=== PATIENT | female | born 1990 | race Caucasian/White ===

== ENCOUNTER 2017-01-02 12:10 | Inpatient (IN) | payer MEDICAID ==
[2017-01-04] MEDS ORDERED: Lidocaine 1% 50 ML MDV INJECT ONE (12:34)
[2017-01-04] MEDS ORDERED: Sodium Chloride 0.9% 10 ML Syringe FLUSH PRN (12:34)
[2017-01-04] MEDS ORDERED: Ondansetron 4 MG/2 ML SDV IVPUSH PRN (12:34)
[2017-01-04] MEDS ORDERED: Nalbuphine 20 MG/1 ML Amp IVPUSH PRN (12:34)
[2017-01-04] MEDS ORDERED: Oxytocin/Lactated Ringers 10 UNIT/1,000 ML BAG IV SCH (12:45)
--- NOTE | 2017-01-04 12:55 | PCM.LDHP ---
L&D History of Present Illness - General Date of Service: 01/04/17 Admit Problem/Dx: Patient Status Order with Admit Dx/Problem 01/04/17 12:34 Patient Status [ADT] Routine Admission Diagnosis/Problem Admission Diagnosis/Problem Normal 01/04/17 12:44 40-2/7 week intrauterine Precis, induction of labor Source of Information: Patient History Limitations: Reports: No Limitations - History of Present Illness Introduction:: Gabriela is a 26-year-old 3 para 2000 white female who is presently at 40 -2/7 weeks gestational age with an JAZMYNE of 01/02/2017 admitted for elective induction of labor for, benefits, alternatives of care discussed neutral patient. She appears to understand and wishes to proceed. 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 Periods are very irregular every 20-35 days. Menarche age 16. Positive hCG on 05/15/2016. Her previous deliveries included the followin. Male born 07/20/2012 at 40 weeks gestational age of after 12 hours labor. 6 lbs. 12 oz. male born via vacuum extraction delivery in [place], [place]. Child's name is Tera. 2. Male infant born [birth year]2016 at 40 weeks gestational age after 6 hour labor- normal spontaneous vaginal delivery in [place]. course was relatively unremarkable. Her EPDS_on 08/13/2016 was 4 out of 30. risk factors for the include history of macrosomic baby-9 lbs. 2 oz., increased distance from the Hospital and history of thrombocytopenia. T Dap vaccination was given on 10/22/2016. Her first visit occurred on 07/13 at 15-2/7 weeks. Weight gain was from 186.6 pounds up to 206 pounds for approximately 20 pound weight gain. Fundal height growth was appropriate and vital signs remained stable throughout the course. Laboratory testing and shows blood to be B+. Negative antibody screen. Her first hemoglobin was 13.6 g her deciliter. Platelets are 150,000. Pap smear was negative. Rubella titer showed immunity. RPR is nonreactive. She did have Escherichia coli urinary early on and was treated. Hepatitis B surface antigen and HIV assays were negative as were the Chlamydia and gonorrhea assays. Second trimester testing showed a hemoglobin 12.4 g/dL, a platelet count of 155,000 and a diabetic screen of 96 which was normal. Patient had a urine culture 2016 which showed Gardnerella vaginalis. This was treated with metronidazole. Her group B strep screen was negative. Allergies: Strawberries, seasonal allergies, tree nuts which cause hives and dust. Medications: vitamins 1 daily. Past medical history: 1. Normal spontaneous vaginal delivery 2 2. History of heart murmur Past surgical history: 1. Tonsillectomy 2011 Family history: Mother and father are alive and well. Mother has a seizure disorder for which she is on meds. One brother is alive and well. Maternal grandmother is secondary to unknown causes. Maternal grandfather is in a CO usp/snf in [place] with dementia. Paternal grandmother is alive and well. Paternal grandfather secondary to COPD and heart disease. No , anesthesia, bleeding or clotting problems noted in the family. Social history: Patient is single. Significant other is Willian Johnson. She does not use any significant muscle call call, drugs or tobacco. 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 She is a high school graduate. Review of systems: Skin: Negative Respiratory: No shortness of breath or infectious symptoms Cardiovascular: No chest pain or exercise tolerance Breasts: Changes associated with GI: Negative : Changes associated with with increased fundal height. Neurologic: Negative Musculoskeletal: Some edema in bilateral lower extremities on occasion. 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 LACTATION COUNSELOR History: Reports: Oncologic (Cancer) History: Reports: None - Infectious Disease History Infectious Disease History: Reports: Chicken Pox - Past Surgical History HEENT Surgical History: Reports: Tonsillectomy Social & Family History - Family History Family Medical History: Noncontributory - Tobacco Use Smoking Status *Q: Never Smoker Second Hand Smoke Exposure: No - Caffeine Use Caffeine Use: Reports: None - Alcohol Use Days Per Week of Alcohol Use: 0 Number of Drinks Per Day: 0 Total Drinks Per Week: 0 - Recreational Drug Use Recreational Drug Use: No Drug Use in Last 12 Months: No H&P Review of Systems - Review of Systems: Review Of Systems: See Below L&D Exam - Exam Exam: See Below - Vital Signs Weight: 80.739 kg Problem List Initiated/Reviewed/Updated: Yes Orders Last 24hrs: Active Orders 24 hr Category Date Time Status Patient Status [ADT] Routine ADT 01/04/17 12:34 Ordered Activity as Tolerated [RC] PFP Care 01/04/17 12:34 Ordered Communication Order [RC] ASDIRECTED Care 01/04/17 12:34 Ordered Heart Tones [RC] ASDIRECTED Care 01/04/17 12:35 Ordered Notify Provider [RC] PFP Care 01/04/17 12:34 Ordered Notify Provider [RC] PRN Care 01/04/17 12:34 Ordered Peripheral IV Care [RC] . DIRECTED Care 01/04/17 12:35 Ordered Pump Management, Intrathecal [RC] ASDIRECTED Care 01/04/17 12:37 Ordered Vital Signs [RC] PER UNIT ROUTINE Care 01/04/17 12:34 Ordered Regular Diet [DIET] Diet 01/04/17 Lunch Ordered CBC WITH AUTO DIFF [HEME] Stat Lab 01/04/17 12:34 Ordered Lactated Ringers [Ringers, Lactated] 1,000 ml Med 01/04/17 12:45 Ordered IV ASDIRECTED Lidocaine 1% [Xylocaine 1%] Med 01/04/17 12:34 Once 10 ml INJECT ONETIME ONE Nalbuphine [Nubain] Med 01/04/17 12:34 Ordered 10 mg IVPUSH Q2H PRN Ondansetron [Zofran] Med 01/04/17 12:34 Ordered 4 mg IVPUSH Q4H PRN Oxytocin/Lactated Ringers [Pitocin in LR 10 Units/1,000 Med 01/04/17 12:45 Ordered ML] 10 unit in 1,000 ml IV TITRATE Sodium Chloride 0.9% [Saline Flush] Med 01/04/17 12:34 Ordered 10 ml FLUSH ASDIRECTED PRN Electronic Heart Tones Ext w TOCO [WOMSER] Oth 01/04/17 12:34 Ordered Routine Electronic Heart Tones Internal [WOMSER] Per Unit Oth 01/04/17 12:34 Ordered Routine Peripheral IV Insertion Adult [OM.PC] Routine Oth 01/04/17 12:34 Ordered Resuscitation Status Routine Resus Stat 01/04/17 12:34 Ordered Medication Orders Lactated Ringer's (Ringers, Lactated) 1,000 mls @ 100 mls/hr IV ASDIRECTED NEAL Oxytocin/Lactated Ringer's (Pitocin In Lr 10 Units/1,000 Ml) 10 unit in 1,000 mls @ 12 mls/hr IV TITRATE NEAL; 2 MUNITS/MIN PRN Reason: Protocol Lidocaine HCl (Xylocaine 1%) 10 ml INJECT ONETIME ONE Stop: 01/04/17 12:35 Nalbuphine HCl (Nubain) 10 mg IVPUSH Q2H PRN PRN Reason: Pain (moderate 4-6) Ondansetron HCl (Zofran) 4 mg IVPUSH Q4H PRN PRN Reason: Nausea/Vomiting Sodium Chloride (Saline Flush) 10 ml FLUSH ASDIRECTED PRN PRN Reason: Keep Vein Open Assessment/Plan Comment:: Assessment: 1. 40-2/7 week intrauterine , admitted for induction of labor. 2. Risk factors for the Siddhartha include distance from the hospital 3. Group B strep negative. 4. Okay with epidural analgesia Plan: 1. Pitocin induction of labor with artificial rupture membranes augmentation at the appropriate time. 2. Electronic monitoring intermittently 3. When necessary for pain 4. Routine labs and labor and delivery care.
[2017-01-04] MEDS: Lactated Ringers 1,000 ML IV SCH ×5 (12:58→18:26)
[2017-01-04] MEDS ORDERED: fentaNYL 100 MCG/2 ML SDV EPIDUR PRN (13:08)
[2017-01-04] MEDS ORDERED: ePHEDrine 50 MG/ML SDV IVPUSH PRN (13:08)
[2017-01-04] MEDS ORDERED: diphenhydrAMINE 50 MG/ML SDV IVPUSH PRN (13:08)
[2017-01-04] MEDS ORDERED: Bupivacaine/fentaNYL/NS 100 ML Bag EPIDUR SCH (13:15)
--- NOTE | 2017-01-04 13:30 | PCM.PREANE ---
Preanesthetic Assessment - Anesthesia/Transfusion/Family Hx Anesthesia History: Prior Anesthesia Without Reaction Family History of Anesthesia Reaction: No Transfusion History: No Prior Transfusion(s) - Review of Systems General: No Symptoms Pulmonary: No Symptoms Cardiovascular: No Symptoms Gastrointestinal: No Symptoms Neurological: No Symptoms Other: Reports: Easy Bruising - Physical Assessment Pulse: 89 O2 Sat by Pulse Oximetry: 98 Respiratory Rate: 18 Vital Signs: Last Vital Signs Temp 99.2 F 01/04/17 13:05 Pulse 89 01/04/17 13:05 Resp 18 01/04/17 13:05 BP 141/65 H 01/04/17 13:05 Pulse Ox 98 01/04/17 13:05 Height: 5 ft 7 in Weight: 80.739 kg ASA Class: 2 Mental Status: Alert & Oriented x3 Airway Class: Mallampati = 1 Dentition: Reports: Normal Dentition Thyro-Mental Finger Breadths: 3 Mouth Opening Finger Breadths: 3 ROM/Head Extension: Full Lungs: Clear to Auscultation, Normal Respiratory Effort Cardiovascular: Regular Rate, Regular Rhythm - Lab Values: Laboratory Last Values WBC 13.65 K/mm3 (3.98-10.04) H 01/04/17 13:14 RBC 4.20 M/mm3 (3.98-5.22) 01/04/17 13:14 Hgb 12.1 gm/L (11.2-15.7) 01/04/17 13:14 Hct 36.7 % (34.1-44.9) 01/04/17 13:14 MCV 87.4 fl (79.4-94.8) 01/04/17 13:14 MCH 28.8 pg (25.6-32.2) 01/04/17 13:14 MCHC 33.0 g/dl (32.2-35.5) 01/04/17 13:14 RDW Std Deviation 44.0 fL (36.4-46.3) 01/04/17 13:14 Plt Count 137 K/mm3 (182-369) L 01/04/17 13:14 MPV 11.4 fl (9.4-12.3) 01/04/17 13:14 Neut % (Auto) 80.9 % (34.0-71.1) H 01/04/17 13:14 Lymph % (Auto) 12.2 % (19.3-51.7) L 01/04/17 13:14 [place] % (Auto) 6.2 % (4.7-12.5) 01/04/17 13:14 Eos % (Auto) 0.3 (0.7-5.8) L 01/04/17 13:14 Baso % (Auto) 0.1 % (0.1-1.2) 01/04/17 13:14 Neut # (Auto) 11.06 K/mm3 (1.56-6.13) H 01/04/17 13:14 Lymph # (Auto) 1.66 K/mm3 (1.18-3.74) 01/04/17 13:14 [place] # (Auto) 0.84 K/mm3 (0.24-0.36) H 01/04/17 13:14 Eos # (Auto) 0.04 K/mm3 (0.04-0.36) 01/04/17 13:14 Baso # (Auto) 0.01 K/mm3 (0.01-0.08) 01/04/17 13:14 - Allergies Allergies/Adverse Reactions: Allergies Allergy/AdvReac Type Severity Reaction Status Date / Time No Known Allergies Allergy Verified 08/20/15 19:39 - Blood Blood Available: No - Acknowledgements Anesthesia Type Planned: Epidural Pt an Appropriate Candidate for the Planned Anesthesia: Yes Alternatives and Risks of Anesthesia Discussed w Pt/Guardian: Yes Pt/Guardian Understands and Agrees with Anesthesia Plan: Yes PreAnesthesia Questionnaire - Past Health History Medical/Surgical History: Denies Medical/Surgical History Cardiovascular History: Reports: Heart Murmur Respiratory History: Reports: None 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) Para: 2 Oncologic (Cancer) History: Reports: None - Infectious Disease History Infectious Disease History: Reports: Chicken Pox - Past Surgical History HEENT Surgical History: Reports: Tonsillectomy - SUBSTANCE USE Smoking Status *Q: Never Smoker Tobacco Use Within Last Twelve Months: No Second Hand Smoke Exposure: No Days Per Week of Alcohol Use: 0 Number of Drinks Per Day: 0 Total Drinks Per Week: 0 Recreational Drug Use History: No - HOME MEDS Home Medications: Home Meds Vit 90/Iron Fum/Folic [ Formula] 1 tab PO DAILY 08/20/15 [ History] Docusate Sodium [Colace] 100 mg PO BID PRN #0 cap 01/31/16 [Rx] Ibuprofen [IJD: Ibuprofen] 600 mg PO Q4H PRN #0 tablet 01/31/16 [Rx] - CURRENT (IN HOUSE) MEDS Current Meds: Current Medications Diphenhydramine HCl (Benadryl) 25 mg IVPUSH Q6H PRN PRN Reason: pruritis Ephedrine Sulfate (Ephedrine Sulfate) 5 mg IVPUSH ASDIRECTED PRN PRN Reason: Hypotension Fentanyl (Sublimaze) 100 mcg EPIDUR Q3H PRN PRN Reason: Pain Fentanyl/Bupivacaine HCl (Fentanyl/Bupivacaine/Ns 2 Mcg-0.125% 100 Ml) 100 ml EPIDUR ASDIRECTED NEAL Lactated Ringer's (Ringers, Lactated) 1,000 mls @ 100 mls/hr IV ASDIRECTED NEAL Last Admin: 01/04/17 12:58 Dose: 100 mls/hr Oxytocin/Lactated Ringer's (Pitocin In Lr 10 Units/1,000 Ml) 10 unit in 1,000 mls @ 12 mls/hr IV TITRATE NEAL; 2 MUNITS/MIN PRN Reason: Protocol Last Admin: 01/04/17 12:58 Dose: 2 munits/min, 12 mls/hr Nalbuphine HCl (Nubain) 10 mg IVPUSH Q2H PRN PRN Reason: Pain (moderate 4-6) Ondansetron HCl (Zofran) 4 mg IVPUSH Q4H PRN PRN Reason: Nausea/Vomiting Sodium Chloride (Saline Flush) 10 ml FLUSH ASDIRECTED PRN PRN Reason: Keep Vein Open Discontinued Medications Lidocaine HCl (Xylocaine 1%) 10 ml INJECT ONETIME ONE Stop: 01/04/17 12:35
--- NOTE | 2017-01-04 21:18 | PCM.SN ---
- Free Text/Narrative Note: Gabriela is a 26-year-old 3 now para 3003 white female who is admitted for elective induction of labor at midday on 01/04/2017. Pitocin was started initially and then artificial rupture membranes was undertaken. She made steady progress to complete cervical dilation by approximately 2045 hrs. She then pushed 1 time and delivered a female infant, weighing 4050 g (8 pounds 14.9 ounces) having an of 7 and 9, length of 21 inches in being born in a left occiput anterior position over an intact perineum. Baby was placed on mom's abdomen and cord was clamped 2 and cut. The umbilical cord had 3 vessels. Pitocin was infused per IV after delivery of the baby to facilitate increase in uterine tone and decrease likelihood of bleeding. Cord blood was obtained. The placenta then delivered intact in a Courtney presentation. It was discarded per patient desire. It appeared complete. Perineum was noted to be intact and no suturing was necessary. Estimated blood loss was 100 mL. Should be noted patient had an epidural in labor which provided good analgesia until the time of delivery. She plans to nurse the baby. Condition: Good.
[2017-01-04] MEDS ORDERED: Witch Hazel Medicated Pads 100/Jar TOP PRN (21:42)
[2017-01-04] MEDS ORDERED: Acetaminophen 325 MG Tab PO PRN (21:42)
[2017-01-04] MEDS ORDERED: Lanolin 100% Cream 7 GM Tube TOP PRN (21:42)
[2017-01-04] MEDS ORDERED: Docusate Sodium 100 MG Cap PO PRN (21:42)
[2017-01-04] MEDS ORDERED: Benzocaine/Menthol 20%-0.5% Spray 56 GM Canister TOP PRN (21:42)
[2017-01-04] MEDS ORDERED: Ibuprofen 600 MG Tab PO PRN (21:42)
[2017-01-04] MEDS ORDERED: Bupivacaine 0.25% 10 ML SDV ONE (22:22)
[2017-01-05] MEDS: Prenatal Multivitamin with Calcium/Folic Acid/Iron Tab PO SCH (09:08)
--- NOTE | 2017-01-05 10:33 | PCM.SN ---
- Free Text/Narrative Note: Post Progress Note PPD # 1 Subjective: Doing well overall. Ambulating without difficulty. Lochia minimal. Voiding without difficulty. Tolerating regular diet. Pain has been minimal and she has used only oral medications last evening after delivery. Breast feeding with minimal difficulty. Objective: Vitals: Vital Signs - 8 hr 01/05/17 01/05/17 01/05/17 04:00 04:01 08:47 Temperature 36.7 C Temperature [ 36.8 C Temporal] Pulse, 93 81 Peripheral Respiratory 15 14 Rate Blood Pressure 124/73 128/82 O2 Sat by Pulse 97 100 Oximetry Physical Exam General: Alert and oriented, no acute distress Lungs: Clear to auscultation bilaterally Heart: Regular rate and rhythm Abdomen: Soft, minimal appropriate tenderness, non-distended, fundus midline, nontender, and below the umbilicus Extremities: Trace edema in bilateral lower extremities to mid shins ASSESSMENT: 26-year-old female G 3 P 3003 s/p normal vaginal delivery PPD #1 PLAN: Doing well Breast feeding with minimal difficulty. Assist as needed Lochia minimal. Continue to monitor for appropriate lochia. Continue routine care Anticipate discharge home tomorrow secondary to late evening time of delivery León Moon MD 10:32 AM 01/05/17
--- NOTE | 2017-01-05 11:57 | PCM48HPAN ---
Post Anesthesia Note - EVALUATION WITHIN 48HRS OF ANESTHETIC Vital Signs in Normal Range: Yes Patient Participated in Evaluation: Yes Respiratory Function Stable: Yes Airway Patent: Yes Cardiovascular Function Stable: Yes Hydration Status Stable: Yes Pain Control Satisfactory: Yes Nausea and Vomiting Control Satisfactory: Yes Mental Status Recovered: Yes - COMMENTS/OBSERVATIONS Free Text/Narrative:: Patient denied any headaches, residual numbness/ tingling to LE, or back pain.
[2017-01-05 21:52] VITALS: BP 128/74
--- NOTE | 2017-01-06 09:25 | PCM.SN ---
- Free Text/Narrative Note: Post Progress Note PPD # 2 Subjective: Doing well overall. Ambulating without difficulty. Lochia minimal. Voiding without difficulty. Tolerating regular diet. Pain controlled with oral medications. Reports some minimal tenderness in her back near her epidural site , but this has been improving. Breast feeding with minimal difficulty. Objective: Vitals: Last Vital Signs Temp 36.8 C 01/05/17 19:54 Pulse 71 01/05/17 19:54 Resp 16 01/05/17 19:54 BP 128/74 01/05/17 19:54 Pulse Ox 99 01/05/17 19:54 Physical Exam General: Alert and oriented, no acute distress Lungs: Clear to auscultation bilaterally Heart: Regular rate and rhythm Abdomen: Soft, minimal appropriate tenderness, non-distended, fundus midline, nontender, and below the umbilicus Extremities: No edema ASSESSMENT: 26-year-old female G 3 P 3003 s/p normal vaginal delivery PPD #2 PLAN: Doing well Breast feeding with minimal difficulty. Assist as needed Lochia minimal. Continue to monitor for appropriate lochia. Continue routine care Anticipate discharge home today León Moon MD 9:24 AM 01/06/17
--- NOTE | 2017-01-06 09:25 | PCM.DCSUM1 ---
Discharge Summary - Hospital Course Free Text/Narrative:: Gabriela is a 26-year-old 3 now para 3003 white female who is admitted for elective induction of labor at midday on 01/04/2017. Pitocin was started initially and then artificial rupture membranes was undertaken. She made steady progress to complete cervical dilation by approximately 2045 hrs. She then pushed 1 time and delivered a female , weighing 4050 g (8 pounds 14.9 ounces) having an of 7 and 9, length of 21 inches in being born in a left occiput anterior position over an intact perineum. Baby was placed on mom's abdomen and cord was clamped 2 and cut. The umbilical cord had 3 vessels. Pitocin was infused per IV after delivery of the baby to facilitate increase in uterine tone and decrease likelihood of bleeding. Cord blood was obtained. The placenta then delivered intact in a Courtney presentation. It was discarded per patient desire. It appeared complete. Perineum was noted to be intact and no suturing was necessary. Estimated blood loss was 100 mL. Should be noted patient had an epidural in labor which provided good analgesia until the time of delivery. She plans to nurse the baby. Condition: Good. HPI Initial Comments: Gabriela is a 26-year-old 3 now para 3003 white female who is admitted for elective induction of labor at midday on 01/04/2017. Pitocin was started initially and then artificial rupture membranes was undertaken. She made steady progress to complete cervical dilation by approximately 2045 hrs. She then pushed 1 time and delivered a female , weighing 4050 g (8 pounds 14.9 ounces) having an of 7 and 9, length of 21 inches in being born in a left occiput anterior position over an intact perineum. Baby was placed on mom's abdomen and cord was clamped 2 and cut. The umbilical cord had 3 vessels. Pitocin was infused per IV after delivery of the baby to facilitate increase in uterine tone and decrease likelihood of bleeding. Cord blood was obtained. The placenta then delivered intact in a Courtney presentation. It was discarded per patient desire. It appeared complete. Perineum was noted to be intact and no suturing was necessary. Estimated blood loss was 100 mL. Should be noted patient had an epidural in labor which provided good analgesia until the time of delivery. She plans to nurse the baby. Condition: Good. Brief History: Gabriela is a 26-year-old 3 now para 3003 white female who is admitted for elective induction of labor at midday on 01/04/2017. Pitocin was started initially and then artificial rupture membranes was undertaken. She made steady progress to complete cervical dilation by approximately 2045 hrs. She then pushed 1 time and delivered a female , weighing 4050 g (8 pounds 14.9 ounces) having an of 7 and 9, length of 21 inches in being born in a left occiput anterior position over an intact perineum. Baby was placed on mom's abdomen and cord was clamped 2 and cut. The umbilical cord had 3 vessels. Pitocin was infused per IV after delivery of the baby to facilitate increase in uterine tone and decrease likelihood of bleeding. Cord blood was obtained. The placenta then delivered intact in a Courtney presentation. It was discarded per patient desire. It appeared complete. Perineum was noted to be intact and no suturing was necessary. Estimated blood loss was 100 mL. Should be noted patient had an epidural in labor which provided good analgesia until the time of delivery. She plans to nurse the baby. Condition: Good. - Discharge Data Discharge Date: 01/06/17 Discharge Disposition: Home, Self-Care 01 Condition: Good - Discharge Diagnosis/Problem(s) (1) (normal spontaneous vaginal delivery) SNOMED Code(s): 77387777 ICD Code: O80 - ENCOUNTER FOR FULL-TERM UNCOMPLICATED DELIVERY Status: Acute Current Visit: Yes (2) 39 weeks gestation of SNOMED Code(s): 23724024 ICD Code: Z3A.39 - 39 WEEKS GESTATION OF Status: Acute Current Visit: No (3) Elective induction of labor planned SNOMED Code(s): 431674702 ICD Code: [id number] - Status: Acute Current Visit: No - Patient Summary/Data Complications: None Consults: None Hospital Course: Gabriela is a 26-year-old 3 now para 3003 white female who is admitted for elective induction of labor at midday on 01/04/2017. Pitocin was started initially and then artificial rupture membranes was undertaken. She made steady progress to complete cervical dilation by approximately 2045 hrs. She then pushed 1 time and delivered a female infant, weighing 4050 g (8 pounds 14.9 ounces) having an of 7 and 9, length of 21 inches in being born in a left occiput anterior position over an intact perineum. Baby was placed on mom's abdomen and cord was clamped 2 and cut. The umbilical cord had 3 vessels. Pitocin was infused per IV after delivery of the baby to facilitate increase in uterine tone and decrease likelihood of bleeding. Cord blood was obtained. The placenta then delivered intact in a Courtney presentation. It was discarded per patient desire. It appeared complete. Perineum was noted to be intact and no suturing was necessary. Estimated blood loss was 100 mL. Should be noted patient had an epidural in labor which provided good analgesia until the time of delivery. She plans to nurse the baby. Condition: Good. Patient was doing well after delivery and was meeting all milestones including ambulating, tolerating regular diet and voiding without difficulty. She is not discharged home in the evening of day #1 secondary to late time of delivery and distance from hospital. In the morning of day #2 she was meeting all milestones and desired to be discharged home. She'll follow up with Dr. Francisco in 2 weeks or earlier as needed. - Patient Instructions Diet: Regular Diet as Tolerated Activity: As Tolerated Driving: May Drive Today Showering/Bathing: May Shower, No Tub Bathing/Swimming (For 6 weeks) Notify Provider of: Fever, Increased Pain, Swelling and Redness, Drainage, Nausea and/or Vomiting - Discharge Plan Home Medications: Home Meds Sce194/FA/Omega3/Dha/Fish Oil [ Gummies] 1 each PO DAILY 01/05/17 [ History] Acetaminophen [Tylenol] 650 mg PO Q4H PRN tablet 01/06/17 [Rx] Benzocaine/Menthol [Dermoplast Pain Relief Wheat[place]] 1 spray TOP ASDIRECTED PRN canister 01/06/17 [Rx] Docusate Sodium [Colace] 100 mg PO BID PRN cap 01/06/17 [Rx] Ibuprofen [IJD: Ibuprofen] 600 mg PO Q6H PRN tablet 01/06/17 [Rx] Lanolin [Lansinoh HPA] 1 applic TOP ASDIRECTED PRN tube 01/06/17 [Rx] Witch Nory [Tucks] 1 pad TOP ASDIRECTED PRN pad 01/06/17 [Rx] Patient Handouts: Vaginal Delivery, Care After Vaginal Delivery Referrals: Sam Francisco MD [Primary Care Provider] - (Follow-up in 2 weeks for visit.) - Discharge Summary/Plan Comment DC Time >30 min.: No - Patient Data Vitals - Most Recent: Last Vital Signs Temp 36.8 C 01/05/17 19:54 Pulse 71 01/05/17 19:54 Resp 16 01/05/17 19:54 BP 128/74 01/05/17 19:54 Pulse Ox 99 01/05/17 19:54 Weight - Most Recent: 97.069 kg I&O - Last 24 hours: Intake & Output 01/05/17 01/06/17 01/06/17 22:59 06:59 14:59 Intake Total 0 Balance 0 Med Orders - Current: Current Medications Acetaminophen (Tylenol) 650 mg PO Q4H PRN PRN Reason: mild pain or fever Benzocaine/Menthol (Dermoplast Pain Relief Wheat[place]) 0 gm TOP ASDIRECTED PRN PRN Reason: Perineal Comfort Measure Last Admin: 01/04/17 22:46 Dose: 1 applic Docusate Sodium (Colace) 100 mg PO BID PRN PRN Reason: Constipation Emollient Ointment (Lansinoh Hpa) 0 gm TOP ASDIRECTED PRN PRN Reason: Sore Nipples Ibuprofen (Motrin) 600 mg PO Q4H PRN PRN Reason: Mild pain or fever Last Admin: 01/06/17 06:10 Dose: 600 mg Prenat Multivit/Randolph/Iron/Folic Ac ( Plus Iron) 1 each PO DAILY NEAL Last Admin: 01/05/17 09:08 Dose: Not Given Zack Canalesel (Tucks) 1 pad TOP ASDIRECTED PRN PRN Reason: Hemorrhoid pain Last Admin: 01/04/17 22:46 Dose: 1 applic Discontinued Medications Bupivacaine HCl (Sensorcaine-Mpf 0.25%) 10 ml .ROUTE .STK-MED ONE Stop: 01/04/17 22:23 Diphenhydramine HCl (Benadryl) 25 mg IVPUSH Q6H PRN PRN Reason: pruritis Ephedrine Sulfate (Ephedrine Sulfate) 5 mg IVPUSH ASDIRECTED PRN PRN Reason: Hypotension Last Admin: 01/04/17 16:34 Dose: 5 mg Fentanyl (Sublimaze) 100 mcg EPIDUR Q3H PRN PRN Reason: Pain Last Admin: 01/04/17 15:30 Dose: 100 mcg Fentanyl/Bupivacaine HCl (Fentanyl/Bupivacaine/Ns 2 Mcg-0.125% 100 Ml) 100 ml EPIDUR ASDIRECTED NEAL Last Admin: 01/04/17 15:29 Dose: 100 ml Lactated Ringer's (Ringers, Lactated) 1,000 mls @ 100 mls/hr IV ASDIRECTED NEAL Last Admin: 01/04/17 18:26 Dose: 999 mls/hr Oxytocin/Lactated Ringer's (Pitocin In Lr 10 Units/1,000 Ml) 10 unit in 1,000 mls @ 12 mls/hr IV TITRATE NEAL; 2 MUNITS/MIN PRN Reason: Protocol Last Titration: 01/04/17 20:48 Dose: 4 munits/min, 24 mls/hr Lidocaine HCl (Xylocaine 1%) 10 ml INJECT ONETIME ONE Stop: 01/04/17 12:35 Last Admin: 01/04/17 23:47 Dose: Not Given Nalbuphine HCl (Nubain) 10 mg IVPUSH Q2H PRN PRN Reason: Pain (moderate 4-6) Ondansetron HCl (Zofran) 4 mg IVPUSH Q4H PRN PRN Reason: Nausea/Vomiting Sodium Chloride (Saline Flush) 10 ml FLUSH ASDIRECTED PRN PRN Reason: Keep Vein Open *Q Meaningful Use (DIS) - VTE *Q VTE Criteria *Q: - Stroke *Q Stroke Criteria *Q: - AMI *Q AMI Criteria *Q:
[2017-01-06] MEDS: Prenatal Multivitamin with Calcium/Folic Acid/Iron Tab PO SCH (14:24)
== END 2017-01-06 13:07 | disposition home or self-care (01) | DRG 775 ==
LOC: EDSTATUS 12:10 → JD.OB 01-04 11:59 → OBSVTOIN 01-04 20:59 → JD.OB 01-04 20:59
PROVIDERS: ADMIT Obstetrics & Gynecology; ATTEND Obstetrics & Gynecology
PROC: 10E0XZZ Delivery of Products of Conception, External Approach (ICD-10-PCS; principal; 2017-01-04)
PROC: 3E0P3VZ Introduction of Hormone into Female Reproductive, Percutaneous Approach (ICD-10-PCS; 2017-01-04)
PROC: 10907ZC Drainage of Amniotic Fluid, Therapeutic from Products of Conception, Via Natural or Artificial Opening (ICD-10-PCS; 2017-01-04)
PROC: 00HU33Z Insertion of Infusion Device into Spinal Canal, Percutaneous Approach (ICD-10-PCS; 2017-01-04)
PROC: 3E0R3BZ Introduction of Anesthetic Agent into Spinal Canal, Percutaneous Approach (ICD-10-PCS; 2017-01-04)
DX: O80 Encounter for full-term uncomplicated delivery (principal); Z91.018 Allergy to other foods; Z91.09 Other allergy status, other than to drugs and biological substances
CPT/HCPCS: 01967; 36415; 51702; 59409; 85025; 85027; A9270-GY; J2590; J3010; J7120

== ENCOUNTER 2021-10-22 22:55 | Emergency (ER) | payer BC, MEDICAID ==
[2021-10-22 23:07] VITALS: BP 105/104; PULSE 105
[2021-10-23] MEDS ORDERED: Sodium Chloride 0.9% 1,000 ML IV SCH (02:15)
[2021-10-23] MEDS ORDERED: Iopamidol 755 Mg/ML 100 ML Bottle IVPUSH ONE (02:59)
[2021-10-23] MEDS ORDERED: Sodium Chloride 0.9% 100 ML IV SCH (03:00)
== END 2021-10-23 05:36 | disposition home or self-care (01) ==
LOC: JD.ED 22:55
DX: F41.0 Panic disorder [episodic paroxysmal anxiety] (principal); Z91.048 Other nonmedicinal substance allergy status; Z91.018 Allergy to other foods
CPT/HCPCS: 36415; 36600; 71046; 71275; 80053; 81001; 81025; 82803; 83735; 83880; 84443; 84484; 85025; 85379; 93005; 96360; 96361; 99285; J7030; Q9967; 93010; 99284

== ENCOUNTER 2022-04-01 08:46 | Day surgery (SDC) | payer MEDICAID ==
[~2022-04-01 08:46] MED LIST: Bupivacaine 0.5%/EPINEPHrine 1:200,000 50 ML MDV ONE; Dexamethasone 4 MG/ML 5 ML MDV ONE; Lactated Ringers 1,000 ML IV SCH; Lactated Ringers 1,000 ML ONE; Lidocaine 1% 30 ML SDV ONE; Lidocaine 1% 4 ML ONE; Lidocaine 1%/Sod Bicarbonate in NS 8.4% 1 ML Syringe IDERM PRN; Midazolam 1 MG/ML 2 ML SDV ONE; Ondansetron 4 MG/2 ML SDV ONE; Propofol 200 MG/20 ML SDV ONE; Rocuronium 50 MG/5 ML Vial ONE; Sodium Chloride 0.9% 10 ML Syringe FLUSH PRN; Sodium Chloride 0.9% 10 ML Syringe FLUSH SCH; fentaNYL 100 MCG/2 ML SDV ONE
[2022-04-01] MEDS ORDERED: ceFAZolin 2 GM Vial ONE (09:29)
[2022-04-01] MEDS ORDERED: Ketorolac 30 MG/ML SDV ONE (10:25)
[2022-04-01] MEDS ORDERED: Dexmedetomidine 200 MCG/2 ML SDV ONE (10:31)
[2022-04-01] MEDS ORDERED: fentaNYL 100 MCG/2 ML SDV IVPUSH PRN (11:05)
[2022-04-01] MEDS ORDERED: Ondansetron 4 MG/2 ML SDV IVPUSH PRN (11:05)
[2022-04-01] MEDS ORDERED: HYDROmorphone 0.5 MG/0.5 ML Syringe IVPUSH PRN (11:05)
[2022-04-01] MEDS ORDERED: Neostigmine Methylsulfate 10 MG/10 ML MDV ONE (11:08)
[2022-04-01 13:37] VITALS: BP 115/70; PULSE 71
== END 2022-04-01 13:35 | disposition home or self-care (01) ==
LOC: JD.SDS 08:46
PROVIDERS: ATTEND Surgery
DX: K42.9 Umbilical hernia without obstruction or gangrene (principal); K43.2 Incisional hernia without obstruction or gangrene; F41.9 Anxiety disorder, unspecified; F32.A Depression, unspecified; G47.33 Obstructive sleep apnea (adult) (pediatric); Z98.890 Other specified postprocedural states; Z79.899 Other long term (current) drug therapy; Z91.048 Other nonmedicinal substance allergy status; Z91.018 Allergy to other foods
CPT/HCPCS: 49591; C1781; J0690; J1100; J1885; J2250; J2405; J2704; J2710; J3010; J3490; J7120

== ENCOUNTER 2023-03-06 12:16 | Emergency (ER) | payer OTHER ==
[2023-03-06 13:52] LABS: CORONAVIRUS COVID-19 NAA NEGATIVE (NEGATIVE); INFLUENZA A NAA NEGATIVE (NEGATIVE)
[2023-03-06] MEDS ORDERED: Albuterol 6.7 GM Inhaler INH ONE (14:41)
[2023-03-06] MEDS ORDERED: guaiFENesin 600 MG Tab.ER PO ONE (14:47)
[2023-03-06 15:53] VITALS: BP 122/103; PULSE 100
== END 2023-03-06 15:04 | disposition home or self-care (01) ==
LOC: JD.ED 12:16
DX: J20.9 Acute bronchitis, unspecified (principal); Z20.822 Contact with and (suspected) exposure to COVID-19; Z91.048 Other nonmedicinal substance allergy status; Z91.018 Allergy to other foods
CPT/HCPCS: 0240U; 71046; 94640; 99284; A9270